=== PATIENT | female | born 1985 | race Caucasian/White ===

== ENCOUNTER 2017-01-09 09:50 | Emergency (ER) | payer OTHER ==
[~2017-01-09 09:50] MED LIST: BACTRIM DS TABL1 TA2; BENTYL10 MG DOB; FLEXERIL10 MG PO; HYDROCODON-ACE1 EAC3 PO; KEFLEX500 M1 PO; LORTAB 5/500 TA1 TA1 PO; METRONIDAZOLE PO; MOTRIN400 MG PO; NAPROSYN500 MG PO; NO MEDICATIONS; NUVARING V1 VAG.RING VG; PHENERGAN25 M1 DOB; PRENATAL VITAMI1 TA3 PO; PYRIDIUM100 MG; VICODIN 5/500 T1 TAB PO; VOLTAREN75 MG PO
[2017-01-09 10:04] LABS: URINE SOURCE CLEAN CATCH
[2017-01-09 10:08] LABS: URINE APPEARANCE CLEAR; URINE BILIRUBIN NEG (NEG); URINE BLOOD NEG (NEG); URINE COLOR DK YELLOW; URINE GLUCOSE NEG (NEG); URINE KETONE 3+ (NEG); URINE LEUKOCYTE ESTERASE TRACE (NEG); URINE NITRATE NEG (NEG); URINE PROTEIN TRACE (NEG)
[2017-01-09 10:09] LABS: BASOPHIL% 0.4 % (0-2.5); DIFF IND NO; EOSINOPHIL% 0.3 % (0.0-7.0); HEMATOCRIT 39.5 % (35.0-45.0); LYMPHOCYTE# 0.7 X10e3 (1.0-3.5); LYMPHOCYTE% 17.4 % (17.0-45.0); MEAN CELL VOLUME 91.7 FL (83-96); MEAN CORPUSCULAR HEMOGLOBIN 30.2 PG (28-34); MEAN CORPUSCULAR HGB CONC 32.9 g/dL (30-36); MEAN PLATELET VOLUME 8.5 FL (6.5-11.5); MONOCYTE# 0.8 X10e3 (0-1.0); MONOCYTE% 19.4 % (3.0-12.0); NEUTROPHIL# 2.6 X10e3 (1.5-7.1); NEUTROPHIL% 62.5 % (40-75); PLATELET COUNT 140 X10e3 (140-420); RED BLOOD COUNT 4.31 X10e (3.90-5.30); RED CELL DISTRIBUTION WIDTH 13.3 % (11.0-15.5); WHITE BLOOD COUNT 4.1 X10e3 (4.0-10.5)
[2017-01-09 10:10] LABS: CULTURE INDICATED? YES; URINE BACTERIA AUWI 1+ (NEGATIVE); URINE SQUAMOUS EPITHELIAL CELL OCC /[HPF]
[2017-01-09 10:18] LABS: URBCS1 AUWI 0-2 /[HPF] (0-2); URINE MUCUS PRESENT
[2017-01-09 10:19] LABS: INFLUENZA A POS (NEG); INFLUENZA B NEG (NEG)
[2017-01-09 10:32] LABS: ALBUMIN SERUM 4.4 g/dL (3.5-5.0); BILIRUBIN, DIRECT 0.1 mg/dL (0.0-0.2); BILIRUBIN,INDIRECT 0.6 mg/dL (0.0-0.9); BILIRUBIN,TOTAL 0.7 mg/dL (0.2-2.0); BUN/CREATININE RATIO 21.66; CALCIUM SERUM 8.8 mg/dL (8.4-10.2); CREATININE SERUM 0.6 mg/dL (0.6-1.4); GLOM FILT RATE Estimated 122.3 mL/min (>60); POTASSIUM 3.7 mmol/L (3.5-5.1); PROTEIN TOTAL SERUM 7.4 g/dL (6.0-8.3)
== END 2017-01-09 11:14 | disposition home or self-care (01) ==
LOC: CED 09:50
PROVIDERS: Emergency Medicine
DX: N39.0 Urinary tract infection, site not specified (principal); J09.X2 Influenza due to identified novel influenza A virus with other respiratory manifestations; Z87.891 Personal history of nicotine dependence
CPT/HCPCS: 36415; 80048; 80076; 81003; 83690; 85025; 87086; 87088; 87186; 87804; 96361; 96374; 96375; 99284; J1885; J2405